=== PATIENT | male | born 1945 | race Caucasian/White ===

== ENCOUNTER → 2017-07-10 | Outpatient (CLI) | payer OTHER | LOC: FIMAGING 07:45 | PROVIDERS: ATTEND Family Medicine Sports Medicine | DX: S32.2XXA Fracture of coccyx, initial encounter for closed fracture (principal); R60.0 Localized edema ==

== ENCOUNTER 2017-11-27 16:00 | Emergency (ER) | payer OTHER ==
--- NOTE | 2017-11-27 16:19 | EDPHY ---
H & P Stated Complaint: Sent from [facility] for abnormal imaging study. Time Seen by Provider: 11/27/17 16:10 HPI/ROS: CHIEF COMPLAINT: DVT left lower extremity HISTORY OF PRESENT ILLNESS: 72-year-old male postop lumbar laminectomy [address] Roosevelt Kennedy, went to the office today for a follow-up visit in the office today was complaining of asymmetrical left lower extremity swelling and discoloration, sent for an outpatient ultrasound found to have a DVT from the distal popliteal to the calf veins and told to go to the ER for evaluation. No prior history of similar. No paresthesia. No chest pain. No dyspnea. PRIMARY CARE PROVIDER:Dr. Humaz Barker REVIEW OF SYSTEMS: A ten point review of systems was performed and is negative with the exception of the items mentioned in the HPI PAST MEDICAL & SURGICAL HISTORY: 11/02/2017 lumbar laminectomy SOCIAL HISTORY:Nonsmoker PHYSICAL EXAM (Prior to examination, patient consented to physical exam, hands were washed and my usual and customary physical exam procedures followed) 1) GENERAL: Well-developed, well-nourished, alert and oriented. Appears to be in no acute distress. 2) HEAD: Normocephalic, atraumatic 3) HEENT: Pupils equal, round, reactive to light bilaterally. Sclera anicteric. 4) NECK: Full range of motion, no meningeal signs. 5) LUNGS: Clear auscultation bilaterally, no wheezes, no rhonchi, no retractions. 6) HEART: Regular rate and rhythm, no murmur, no heave, no gallop. 7) ABDOMEN: No guarding, no rebound, no focal tenderness, negative McBurney's, negative Zhu's, negative Rovsing's, negative peritoneal sign, 8) MUSCULOSKELETAL: Left lower extremity: Asymmetrical edema, left lower extremity is swollen, violaceous coloration distally with delayed capillary refill and cold Moving all extremities, no focal areas of tenderness, no obvious trauma. No peripheral edema or discoloration. 9) BACK: No CVA tenderness, no midline vertebral tenderness, no fluctuance, no step-off, no obvious trauma, no visual or palpable abnormality. 10) SKIN: No rash, no petechiae. 11) Psychiatric: Patient is oriented X 3, there is no agitation. DIFFERENTIAL DIAGNOSIS: In no particular include but limited to DVT, arterial occlusion, compartment syndrome - Personal History Current Tetanus Diphtheria and Acellular Pertussis (TDAP): Yes - Medical/Surgical History Hx Asthma: No Hx Chronic Respiratory Disease: No Hx Diabetes: No Hx Cardiac Disease: No Hx Renal Disease: No Hx Cirrhosis: No Hx Alcoholism: No Hx HIV/AIDS: No Hx Splenectomy or Spleen Trauma: No Other PMH: Laminectomy Nov 02 2017. HTN - Social History Smoking Status: Never smoked Constitutional: Initial Vital Signs Temperature (C) 36.4 C 11/27/17 16:01 Heart Rate 84 11/27/17 16:01 Respiratory Rate 16 11/27/17 16:01 Blood Pressure 126/79 H 11/27/17 16:01 O2 Sat (%) 94 11/27/17 16:01 O2 Delivery Mode Room Air Allergies/Adverse Reactions: No Known Allergies Allergy (Unverified 11/27/17 16:53) Home Medications: Medication Instructions Recorded Aspirin 11/27/17 Rivaroxaban [Xarelto 15mg (*)] 15 mg PO BID #42 tab 11/27/17 Medical Decision Making - Diagnostics Imaging Results: Imaging Impressions Aorta w/Runoff CTA 11/27/17 17:02 Impression: 1. No evidence of arterial occlusive disease. Mild diffuse atherosclerosis. No discrete stenoses. 2. Moderate left calf edema, likely result of known DVT. 3. Fat-containing right inguinal hernia. Findings were communicated by telephone with Dr. Zulay Reece at 2017 17:50 Images reviewed myself ED Course/Re-evaluation: 4:40 p.m.: I reviewed the patient's imaging results showing a DVT to the left lower extremity. On exam he is also noted to have a cold violaceous foot with delayed capillary refill. He has been informed that arterial occlusion is not ruled out. I recommended obtaining i-STAT, aortic runoff study. Indications risks benefits discussed with patient and he consents. I saw this patient independently based on established practice protocols. Care of patient under supervision of secondary supervising physician Dr Cyr with whom I discussed case. 6:00 p.m.: Re-evaluation, discussed his aortic root runoff study showing no evidence of occlusive disease. Plan will be discharge, initiation of Xarelto, follow up with PCP in 2 days. Re-evaluation, his foot has palpable pulses normal color normal temperature. This was perhaps a transient episode. Usual and customary discharge precautions and instructions provided. - Data Points Laboratory Results: Laboratory Results 11/27/17 16:41 11/27/17 16:41 11/27/17 11/27/17 11/27/17 16:48 16:41 16:41 WBC 8.65 10^3/uL 10^3/uL (3.80-9.50) RBC 4.67 10^6/uL 10^6/uL (4.40-6.38) Hgb 15.1 g/dL g/dL (13.7-17.5) POC Hgb 15.0 gm/dL gm/dL (13.7-17.5) Hct 43.2 % % (40.0-51.0) POC Hct 44 % % (40-51) MCV 92.5 fL fL (81.5-99.8) MCH 32.3 pg pg (27.9-34.1) MCHC 35.0 g/dL g/dL (32.4-36.7) RDW 14.4 % % (11.5-15.2) Plt Count 224 10^3/uL 10^3/uL (150-400) MPV 9.0 fL fL (8.7-11.7) Neut % (Auto) 71.9 % % (39.3-74.2) Lymph % (Auto) 14.1 % L % (15.0-45.0) [place] % (Auto) 10.2 % % (4.5-13.0) Eos % (Auto) 3.4 % % (0.6-7.6) Baso % (Auto) 0.2 % L % (0.3-1.7) Nucleat RBC Rel Count 0.0 % % (0.0-0.2) Absolute Neuts (auto) 6.22 10^3/uL 10^3/uL (1.70-6.50) Absolute Lymphs (auto) 1.22 10^3/uL 10^3/uL (1.00-3.00) Absolute Monos (auto) 0.88 10^3/uL H 10^3/uL (0.30-0.80) Absolute Eos (auto) 0.29 10^3/uL 10^3/uL (0.03-0.40) Absolute Basos (auto) 0.02 10^3/uL 10^3/uL (0.02-0.10) Absolute Nucleated RBC 0.00 10^3/uL 10^3/uL (0-0.01) Immature Gran % 0.2 % % (0.0-1.1) Immature Gran # 0.02 10^3/uL 10^3/uL (0.00-0.10) POC Sodium 138 mEq/L mEq/L (135-145) Sodium 138 mEq/L mEq/L (135-145) POC Potassium 3.9 mEq/L mEq/L (3.3-5.0) Potassium 4.1 mEq/L mEq/L (3.3-5.0) POC Chloride 101 mEq/L mEq/L (97-110) Chloride 101 mEq/L mEq/L (97-110) Carbon Dioxide 24 mEq/l mEq/l (22-31) Anion Gap 13 mEq/L mEq/L (8-16) POC BUN 28 mg/dL H mg/dL (7-23) BUN 27 mg/dL H mg/dL (7-23) Creatinine 1.0 mg/dL mg/dL (0.7-1.3) POC Creatinine 1.1 mg/dL mg/dL (0.7-1.3) Estimated GFR > 60 Glucose 95 mg/dL mg/dL (70-100) POC Glucose 104 mg/dL H mg/dL (70-100) Calcium 9.4 mg/dL mg/dL (8.5-10.4) Medications Given: Discontinued Medications Sodium Chloride (Ns) 1,000 mls @ 0 mls/hr IV ONCE ONE PRN Reason: Wide Open Stop: 11/27/17 16:50 Last Admin: 11/27/17 17:06 Dose: 1,000 mls Rivaroxaban (Xarelto) 15 mg PO EDNOW ONE Stop: 11/27/17 18:13 Last Admin: 11/27/17 18:23 Dose: 15 mg Point of Care Test Results: Chemistry 11/27/17 16:48 POC Sodium 138 mEq/L mEq/L (135-145) POC Potassium 3.9 mEq/L mEq/L (3.3-5.0) POC Chloride 101 mEq/L mEq/L (97-110) POC BUN 28 mg/dL H mg/dL (7-23) POC Creatinine 1.1 mg/dL mg/dL (0.7-1.3) POC Glucose 104 mg/dL H mg/dL (70-100) ISTAT H&H 11/27/17 16:48 POC Hgb 15.0 gm/dL gm/dL (13.7-17.5) POC Hct 44 % % (40-51) Departure - Departure Disposition: Home, Routine, Self-Care Clinical Impression: Left leg DVT Qualifiers: Affected thrombotic vein of extremity: popliteal Chronicity: acute Qualified Code(s): I82.432 - Acute embolism and thrombosis of left popliteal vein Condition: Good Instructions: Rivaroxaban (By mouth), Deep Vein Thrombosis (ED) Additional Instructions: Return to the ER immediately if you experience discoloration, have worsening pain, numbness, tingling, or any other symptoms that concern you. If you received x-rays in the emergency department today, be advised, that ligamentous , tendon, muscular, and other non-bony injury cannot be fully ruled out. Try to keep your affected extremity elevated above the level of your chest, and keep cold packs on the affected area, for the next 48 hours. Referrals: Humza Barker MD [Primary Care Provider] - 1-2 days without fail Prescriptions: Rivaroxaban [Xarelto 15mg (*)] 15 mg PO BID #42 tab
[2017-11-27] MEDS ORDERED: NS 1,000 ML IV ONE (16:49)
[2017-11-27] MEDS ORDERED: IOPAMIDOL (ISOVUE 370) 100 ML BTL IV ONE (17:09)
[2017-11-27 17:10] LABS: PLATELET COUNT 224 10^3/uL (150-400)
[2017-11-27 17:57] VITALS: BP 120/71
[2017-11-27] MEDS ORDERED: RIVAROXABAN 15 MG TAB PO ONE (18:12)
== END 2017-11-27 18:25 | disposition home or self-care (01) ==
DX: I82.432 Acute embolism and thrombosis of left popliteal vein (principal); I10 Essential (primary) hypertension; Z79.82 Long term (current) use of aspirin
CPT/HCPCS: 75635; 99285; Q9967; 82435-PO; 82565-PO; 82947-PO; 84132-PO; 84295-PO; 84520-PO; 85014-PO

== ENCOUNTER → 2017-11-27 | Outpatient (CLI) | payer OTHER | LOC: FIMAGING 15:18 | PROVIDERS: ATTEND Physician Assistant | DX: I82.432 Acute embolism and thrombosis of left popliteal vein (principal); I82.492 Acute embolism and thrombosis of other specified deep vein of left lower extremity ==